=== PATIENT | female | born 2000 | race Hispanic/Latino ===

== ENCOUNTER 2019-06-05 22:38 | Inpatient (IN) | payer OTHER ==
[~2019-06-05 22:38] MED LIST: Bupivacaine 0.25% HCL 30 ML VIAL ONE
[2019-06-05] MEDS ORDERED: hydrALAZINE 20 MG/ML VIAL SLOW IVP PRN (23:01)
[2019-06-05 23:19] VITALS: BMI 41.1
[2019-06-05 23:47] LABS: Amnisure Test No Membranes Rupture (No Rupture)
[2019-06-05 23:48] LABS: Amnisure Internal Control QC ACCEPTABLE (ACCEPTABLE)
[2019-06-06] MEDS ORDERED: HYDROcodone/Acetaminophen 5/325 mg Tablet PO PRN ×2 (05:33)
[2019-06-06] MEDS ORDERED: NS / Oxytocin 40 units/1000ml 1,000 ML IV PRN (05:33)
[2019-06-06] MEDS ORDERED: Ondansetron PF 4 MG/2 ML Vial IVP PRN ×3 (05:33→17:16)
[2019-06-06] MEDS ORDERED: Promethazine HCl 25 MG/ML VIAL IM PRN ×2 (05:33→14:08)
[2019-06-06] MEDS ORDERED: hydrALAZINE 20 MG/ML VIAL SLOW IVP PRN ×2 (05:33→17:16)
[2019-06-06] MEDS ORDERED: Ibuprofen 800 MG TAB PO PRN (05:33)
[2019-06-06] MEDS ORDERED: Lidocaine 1% (PF) 30 ML VIAL SC PRN (05:33)
[2019-06-06] MEDS ORDERED: Lactated Ringer's 1,000 ML IV SCH (05:33)
[2019-06-06] MEDS ORDERED: NS w/ Oxytocin 10 units 500 ML IV SCH (05:33)
[2019-06-06 05:54] LABS: Hemoglobin 12.1 g/dL (12.0-16.0); Mean Corpuscular HGB CONC 34.1 g/dL (32.0-36.0); Mean Corpuscular Hemoglobin 30.5 pg (25.0-35.0); Mean Corpuscular Volume 89.6 fL (78.0-98.0); Mean Platelet Volume 10.7 fL (7.4-10.4); Platelet Count 159 thou/uL (130-400); RBC Distribution Width 12.8 % (11.5-14.5); Red Blood Cell (RBC) Count 3.98 mill/uL (4.00-5.20)
[2019-06-06 06:38] LABS: HBSAg Index 0.18 S/CO (0-0.99); Hep B Surf Ag Non-Reactive S/CO (NonReactive); Syphilis Antibody Nonreactive (Nonreactive); Syphilis Antibody Index 0.03 S/CO (<1.00 Non-Reactive)
[2019-06-06] MEDS: Butorphanol Tartrate 1 MG/ML VIAL SLOW IVP PRN ×2 (07:16→12:11)
[2019-06-06] MEDS: Lactated Ringer's 1,000 ML IV SCH ×2 (07:21→14:17)
[2019-06-06] MEDS ORDERED: Fentanyl 4 mcg/Bup 0.1% Cadd 100 ML ONE (13:26)
[2019-06-06] MEDS ORDERED: Lactated Ringer's 500 ML IV PRN (14:08)
[2019-06-06] MEDS ORDERED: Acetaminophen 325 MG TAB PO PRN (14:08)
[2019-06-06] MEDS ORDERED: diphenhydrAMINE 50 MG/ML VIAL IVP PRN (14:08)
[2019-06-06] MEDS ORDERED: Naloxone HCl 0.4 mg/ml Vial IVP PRN ×2 (14:08)
[2019-06-06] MEDS ORDERED: EPHEDRINE 25 MG/5 ML SYRINGE SLOW IVP PRN (14:08)
[2019-06-06] MEDS ORDERED: Communication Order-Pharmacy FS SCH (14:15)
[2019-06-06] MEDS ORDERED: Fentanyl 4 mcg/Bupivacaine 0.1% Cassette 100 ML EPIDURAL SCH (14:15)
[2019-06-06] MEDS ORDERED: Lidocaine 1% (PF) 30 ML VIAL ONE (16:15)
[2019-06-06] MEDS ORDERED: NS / Oxytocin 40 units/1000ml 1,000 ML ONE (16:15)
[2019-06-06] MEDS ORDERED: Benzocaine-Menthol 82.5 ML CAN TOP PRN (17:16)
[2019-06-06] MEDS ORDERED: Preparation H Ointment 28 GM TUBE PR PRN (17:16)
[2019-06-06] MEDS ORDERED: diphenhydrAMINE 25 MG CAP PO PRN (17:16)
[2019-06-06] MEDS ORDERED: Bisacodyl 10 MG SUPP PR PRN (17:16)
[2019-06-06] MEDS ORDERED: Lanolin Ointment 7 GM TUBE TOP PRN (17:16)
[2019-06-06] MEDS ORDERED: Misoprostol 200 MCG TAB VAG PRN (17:16)
[2019-06-06] MEDS ORDERED: Zolpidem Tartrate 5 MG TAB PO PRN (17:16)
[2019-06-06] MEDS ORDERED: Milk Of Magnesia 30 ML UDCUP PO PRN (17:16)
[2019-06-06] MEDS ORDERED: Acetaminophen/Codeine 30-300mg Tablet PO PRN ×2 (17:16)
[2019-06-06] MEDS ORDERED: NS / Oxytocin 40 units/1000ml 1,000 ML IV SCH (17:30)
[2019-06-06] MEDS: Ibuprofen 800 MG TAB PO SCH (22:12)
[2019-06-06] MEDS: Docusate Calcium (SURFAK) 240 MG CAP PO SCH (22:12)
[2019-06-07] MEDS: Docusate Calcium (SURFAK) 240 MG CAP PO SCH ×2 (08:34→21:52)
[2019-06-07] MEDS: Prenatal Vitamin 1 TAB PO SCH (08:34)
[2019-06-07] MEDS: Ferrous Sulfate 325 MG TAB PO SCH ×2 (08:35→14:47)
[2019-06-07] MEDS: Ibuprofen 800 MG TAB PO SCH ×3 (08:36→21:52)
[2019-06-07] MEDS ORDERED: Adacel (T-DAP) 0.5 ML SYRINGE IM ONE (09:00)
[2019-06-08] MEDS: Ibuprofen 800 MG TAB PO SCH (05:32)
[2019-06-08] MEDS: Docusate Calcium (SURFAK) 240 MG CAP PO SCH (08:25)
[2019-06-08] MEDS: Prenatal Vitamin 1 TAB PO SCH (08:25)
[2019-06-08] MEDS: Ferrous Sulfate 325 MG TAB PO SCH (08:26)
[2019-06-08 09:24] VITALS: BP 106/58; TEMP 97.9
== END 2019-06-08 12:30 | disposition home or self-care (01) | DRG 807 ==
LOC: L&D/OP 22:38 → L&D 06-06 05:13 → 3SW 06-06 20:24
PROVIDERS: ADMIT Obstetrics & Gynecology; ATTEND Obstetrics & Gynecology
PROC: 10907ZC Drainage of Amniotic Fluid, Therapeutic from Products of Conception, Via Natural or Artificial Opening (ICD-10-PCS; principal; 2019-06-06)
PROC: 10D07Z6 Extraction of Products of Conception, Vacuum, Via Natural or Artificial Opening (ICD-10-PCS; 2019-06-06)
PROC: 6A550ZT Pheresis of Cord Blood Stem Cells, Single (ICD-10-PCS; 2019-06-06)
PROC: 0HQ9XZZ Repair Perineum Skin, External Approach (ICD-10-PCS; 2019-06-06)
DX: O70.0 First degree perineal laceration during delivery (principal); Z37.0 Single live birth; Z3A.37 37 weeks gestation of pregnancy
CPT/HCPCS: 36415; 51702; 84112; 85027; 86780; 86850; 86900; 86901; 87340; 99285; J0595; J2001; J2590; S0020

== ENCOUNTER 2019-10-21 11:39 | Emergency (ER) | payer OTHER ==
[2019-10-22 15:22] LABS: SARS-CoV-2 MS2 Positive; SARS-CoV-2 N Gene Negative; SARS-CoV-2 S Gene Negative; SARS-CoV-2 orf1ab Negative
== END 2019-10-21 11:57 | disposition home or self-care (01) ==
LOC: ERS 11:39
DX: R51 Headache (principal); M79.10 Myalgia, unspecified site; Z20.828 Contact with and (suspected) exposure to other viral communicable diseases
CPT/HCPCS: 87635; 99284; U0003

== ENCOUNTER 2020-03-12 11:24 | Emergency (ER) | payer OTHER ==
[2020-03-12 16:32] LABS: SARS-CoV-2 MS2 Positive; SARS-CoV-2 N Gene Negative; SARS-CoV-2 S Gene Negative; SARS-CoV-2 by NAA Not Detected (NotDetected); SARS-CoV-2 orf1ab Negative
== END 2020-03-12 12:15 | disposition home or self-care (01) ==
LOC: ERS 11:24
DX: O99.891 Other specified diseases and conditions complicating pregnancy (principal); Z20.828 Contact with and (suspected) exposure to other viral communicable diseases; Z3A.08 8 weeks gestation of pregnancy
CPT/HCPCS: 87635; 99283; U0003